=== PATIENT | male | born 1965 | race Caucasian/White ===

== ENCOUNTER → 2020-01-22 | Outpatient (CLI) | payer OTHER ==
[~2020-01-22] MED LIST: ALPRAZOLAM PO; CELEBREX 200 M200 M1 PO; CIPRO500 M1 PO; CYCLOBENZAPRINE5 MG PO; FLAGYL500 M1 PO; FLEXERIL PO; IBUPROFEN 400400 M1 PO; LISINOPRIL20 MG PO; NORCO 5-325 TA1 EAC2 PO; TRAMADOL 50 MG50 MG PO
== END ==
LOC: M.PC 01-21 09:50
PROVIDERS: ATTEND Physical Medicine & Rehabilitation
DX: M47.26 Other spondylosis with radiculopathy, lumbar region (principal); M51.16 Intervertebral disc disorders with radiculopathy, lumbar region; M79.604 Pain in right leg

== ENCOUNTER → 2020-04-06 | Outpatient (CLI) | payer OTHER ==
[~2020-04-06] MED LIST changes: +LORCET 5-325 M1 EACH PO
== END ==
LOC: M.PC 09:02
PROVIDERS: ATTEND Physical Medicine & Rehabilitation
DX: M47.26 Other spondylosis with radiculopathy, lumbar region (principal); Z79.891 Long term (current) use of opiate analgesic